=== PATIENT | male | born 1990 | race Caucasian/White ===

== ENCOUNTER 2025-08-23 10:05 | Outpatient (AMB) | payer SELFPAY ==
--- OUTSIDE RECORDS SUMMARY | 2025-08-23 10:09 | XMS_ITS | Encounter Summary ---
Author Organization [facility] Address [address] [place] [address] Phone Care Team Providers Care Yeast Cake Cutter Name Role Phone Laura Pardo MD Primary Care Provider [phone] Encounter Details Date Type Department Care Team (Late st Contact Info) Description 02/12/2011 Documentation EM Family Medicine [address] [place] [address] Family Medicine, Physician [address] [place], [place] [id number] Social History Tobacco Use Types Packs/Day Years Used Date Smoking Tobacco: Never Assessed Sex and Gender Information Value Date Recorded Sex Assigned at Not on file Legal Sex Male 4:30 PM EDT Gender Identity Not on file Sexual Orientation Not on file documented as of this encounter Plan of Treatment Not on file documented as of this encounter Visit Diagnoses Not on filedocumented in this encounter Care Teams Yeast Cake Cutter Relationship Specialty Start Date End Date Laura Pardo MD [address] [place] [address] [place] [address] PCP - General 04/08/17 12/06/22 documented as of this encounter
--- OUTSIDE RECORDS SUMMARY | 2025-08-23 10:09 | XMS_ITS | Encounter Summary ---
Author Organization [facility] Address [address] [place] [address] Phone Care Team Providers Care Dewaxer Name Role Phone Laura Pardo MD Primary Care Provider [phone] Encounter Details Date Type Department Care Team (Late st Contact Info) Description 02/12/2011 Documentation EM Family Medicine [address] [place] [address] Family Medicine, Physician [address] [place], [place] [id number] Social History Tobacco Use Types Packs/Day Years [...] on filedocumented in this encounter Care Teams Dewaxer Relationship Specialty Start Date End Date Laura Pardo MD [address] [place] [address] [place] [address] PCP - General 04/08/17 12/06/22 documented as of this encounter
--- OUTSIDE RECORDS SUMMARY | 2025-08-23 10:10 | XMS_ITS | Clinical Summary ---
Author Organization [facility] Address [address] [place] [address] Phone Care Team Providers Care Train Control Electronic Technician Name Role Phone Unavailable Primary Care Provider Unavailabl e Immunizations Immunization Administration Dates Next Due DTP 09/25/1996, 4,05/18/1993,02/23,1992 Hep B, ped/adol 10/12/1993,1992,1992 Hib (PRP-T) 01/12/1994, 3,02/23/1993,12/22 IPV 09/25/1993, 4,02/23/1993,12/22 Influenza, intranasal, trivalent 07/12/2008,06/29 MMR 10/09/1997,01/12/1994 Meningococcal Polysaccharide 07/15/2006 Td (adult) (MBL), 2 Lf tetan us toxoid, PF, adsorbed 05/09/2003 Tdap 07/12/2008 Family History Relation Name Status Comments Father Alive Father: Healthy Maternal Grandmother Materna l grandmother: , Brain tumor Mother Alive Mother: Epilept ic Sister Alive Sister: Healthy , Healthy Social History Tobacco Use Types Packs/Day Years Used Date Smoking Tobacco: Never Assessed Sex and Gender Information Value Date Recorded Sex Assigned at Not on file Legal Sex Male 4:30 PM EDT Gender Identity Not on file Sexual Orientation Not on file Plan of Treatment Health Maintenance Due Date Last Done Comments Varicella Vaccines (1 of 2 - 13+ 2-dose series) 08/09/2008 DTaP,Tdap,and Td Vaccines (7 - Td or Tdap) 07/12/2018 07/12/2008, 05/09/2003, 09/25/1996, Additional history exists HPV Vaccines (1 - 3-dose SCDM series) 2019 Influenza Vaccines (#1) 2025 07/12/2008, 07/15 COVID-19 Vaccine ( season) 2025 IPV Vaccines Completed 09/25/1993, 09/1993, 02/23/1993, Additional history exists Hepatitis B Vaccines Completed 10/12/1993, 1992, 1992 HIB Vaccines Completed 01/12/1994, 04/30, 02/23/1993, Additional history exists MMR Vaccines Completed 10/09/1997, 01/12/1994 Hepatitis A Vaccines Aged Out No long er eligible based on patient's age to complete this topic Men B Vaccine Aged Out No longer elig ible based on patient's age to complete this topic Meningococcal Vaccine Aged Out No leah linwood eligible based on patient's age to complete this topic Pneumococcal Vaccine Aged Out No long er eligible based on patient's age to complete this topic
--- OUTSIDE RECORDS SUMMARY | 2025-08-23 10:10 | XMS_ITS | Encounter Summary ---
Author Organization [facility] Address [address] [place] [address] Phone Care Team Providers Care Automotive Accessory Installer Name Role Phone Laura Pardo MD Primary Care Provider [phone] Encounter Details Date Type Department Care Team (Late st Contact Info) Description 04/14/2017 Conversion Encounter [facility] [place] [address] [place] [address] Social History Tobacco Use Types Packs/Day Years [...] on filedocumented in this encounter Care Teams Automotive Accessory Installer Relationship Specialty Start Date End Date Laura Pardo MD [address] [place] [address] PCP - General 04/08/17 12/06/22 documented as of this encounter
--- OUTSIDE RECORDS SUMMARY | 2025-08-23 10:10 | XMS_ITS | Encounter Summary ---
Author Organization [facility] Address [address] [place] [address] Phone Care Team Providers Care Webbing Weaver Name Role Phone Laura Pardo MD Primary Care Provider [phone] Encounter Details Date Type Department Care Team (Late st Contact Info) Description 02/12/2011 Documentation EM Family Medicine [address] [place] [address] Family Medicine, Physician [address] [place], [place] [phone] Social History Tobacco Use Types Packs/Day Years [...] on filedocumented in this encounter Care Teams Webbing Weaver Relationship Specialty Start Date End Date Laura Pardo MD [address] [place] [address] [place] [address] PCP - General 04/08/17 12/06/22 documented as of this encounter
--- NOTE | 2025-08-23 11:21 | AM.OFFWIN_ITS ---
Intake Vital Signs 08/23/25 11:23 Height 5 ft 8 in Weight 232 lb BMI 35.3 BP 124/80 Blood Pressure Location Rt brachial Position Sitting Pulse 99 Pulse Source Pulse Oximeter Temp 98.3 F Temp Source Oral Pulse Oximetry (%) 97 Oxygen Delivery Method Room Air Intake Visit Reasons: EP Flu symptoms Intake Note: Patient presents c/o chest congestion/tightness, vomiting phlegm, diarrhea, fever x3 days. Patient Tobacco Use Status: Never used Tobacco Allergies No Known Allergies Allergy (Unverified 08/23/25 11:26) Do you need a note to return to daycare/school/sports/work: Yes HPI HPI Comments History of Present Illness Details History - The patient is a 34 year old male pres enting with upper respiratory symptoms. - He reports the onset of a cough on the night of the . - His symptoms worsened on , with the development of cold sweats, chest tightness, and wheezing. - He denies any personal history of asth ma or COPD. - He has been producing clear phlegm and has been self-treating with Mucinex, DayQuil, and NyQuil. - Associated symptoms include fatigue an d coughing fits at night. - He denies any vomiting or diarrhea. - The patient's daughter was diagnosed w ith influenza at the emergency room on the previous night after experiencing a febrile seizure. [facility] Social History Patient Tobacco Use Status: Never used Tobacco Review of Systems Narrative Review of Systems - Constitutional: Reports fever, cold sweats, and fatigue. - Respiratory: Reports cough with clear phlegm, chest tightness, and wheezing. - Cardiovascular: Denies chest pain, but reports chest tightness. - Gastrointestinal: Denies vomiting and diarrhea. - HEENT: Reports a sore throat. All systems reviewed and are unremarkable except as noted in HPI Physical Exam Exam Exam: Physical Exam General: Cooperative, healthy appearing, comfortable and no acute distress Orientation/consciousness: Patient oriented x3 Limitations: No limitations Head: Normal to inspection Ears: Hearing grossly normal bilaterally, external ears normal, EAC's normal bilaterally and TM's normal bilaterally Nose: Normal external nose present, Normal nares present and No nasal discharge present Face and sinus: Normal facial exam and sinuses nontender Mouth: Normal oral and palatal mucosa present and moist mucous membranes Throat: tonsils normal, no exudates, uvula midline, posterior oropharynx erythema Eyes: Appearance normal, both eyes and all related structures Neck: Normal visual inspection, full ROM Respiratory: Clear to auscultation bilaterally. Normal respiratory effort, able to speak in complete sentences, actively coughing, no respiratory distress, not tachypneic, no tripod positioning and no use of accessory muscles Cardiovascular: Regular rate and rhythm. Normal S1 and S2. Heart rate noted to be around 100, occasionally popping up to 110-120. Skin: No rashes or lesions noted Neuro: Patient oriented x3 Extremities: Normal to inspection and Yes no clubbing, cyanosis or edema Vital Signs: Last Vital Signs Temp 98.3 F 08/23/25 11:23 Pulse 99 08/23/25 11:23 BP 124/80 08/23/25 11:23 Pulse Ox 97 08/23/25 11:23 Oxygen Delivery Method Room Air 08/23/25 11:23 BMI result Body Mass Index 35.3 Assessment & Plan Assessment & Plan (1) Acute viral syndrome: Code(s): B34.9 - Viral infection, unspecified Plan: Patient was informed and verbally consented to the use of an ambient scribe for clinic note documentation during this visit. - VSS, pt well appearing and PE unremarkable. - A presumptive diagnosis of influenza is made given the patient's symptoms and his daughter's confirmed diagnosis. - A flu, rsv and COVID-19 swab has been collected, with results pending. - A prescription for Tamiflu has been sent to the pharmacy to be started immediately for optimal efficacy, with instructions to discontinue if the flu test returns negative. - Recommended continued use of [id number]-ffbragw medications such as Mucinex, DayQuil, and NyQuil, as well as Tylenol for fever. - Advised to increase fluid intake with Gatorade and water to manage borderline tachycardia likely 2/2 fever. - A work note will be provided to cover his absence for the upcoming weekend. - To manage the nocturnal cough, a prescription for Tessalon Perles (benzonatate) has been sent to the pharmacy. - The patient was counseled on the danger of this medication to children and advised to store it safely. Orders: Orders SARS-CoV2/FLU/RSV Today R09.89 - Other specified symptoms and signs involving the circulatory and respiratory systems Medications: New oseltamivir (Tamiflu) 75 mg PO Q12H 10 caps 0RF 5 days benzonatate DO NOT ALLOW CHILDREN TO HAVE ACCESS TO THIS MEDICATION IT IS DANGEROUS FOR CHILDREN. 200 mg PO BEDTIME PRN 10 caps 0RF cough Coding Level of Care Code New Pt Level 3 (96698) Diagnoses Acute viral syndrome B34.9
[2025-08-23 11:23] VITALS: BP 124/80; PULSE 99; TEMP 36.8; O2SAT 97; BMI 35.3
== END 2025-08-23 11:40 | disposition home or self-care (01) ==
PROVIDERS: Visit Provider Physician Assistant
DX: B34.9 Viral infection, unspecified (principal)

== ENCOUNTER 2025-08-23 10:05 | Outpatient (REF) | payer SELFPAY ==
[2025-08-23 15:44] LABS: Resp Syncy Virus RNA Qual PCR NEGATIVE (Negative); SARS COV2 PCR INHOUSE NEGATIVE (Negative)
== END 2025-08-23 10:06 | disposition home or self-care (01) ==
LOC: HO.LNP 10:05
PROVIDERS: Physician Assistant
DX: R09.89 Other specified symptoms and signs involving the circulatory and respiratory systems (principal); B34.9 Viral infection, unspecified; Z79.899 Other long term (current) drug therapy
CPT/HCPCS: 87637